=== PATIENT | female | born 1955 | race Caucasian/White ===

== ENCOUNTER 2016-07-11 08:53 | Day surgery (SDC) | payer BC, MEDICAID ==
[2016-07-10 13:28] VITALS: BMI 21.9
[2016-07-11] VITALS (33 sets, daily range): BP systolic 103–179; BP diastolic 55–105; PULSE 60–100; RESP 14–35; Ht 157.5 cm; Wt 55.9 kg
[~2016-07-11] VITALS: Ht 157.5 cm; Wt 55.9 kg
[~2016-07-11 08:53] MED LIST: ENAL20TA PO; HYDR-906 PO; METF500T3 PO
[2016-07-11] MEDS ORDERED: METF-382 PO (09:35)
[2016-07-11 09:53] LABS: BASOPHILS % 0.4 % (0.0-2.0); EOSINOPHILS # 0.2 10^3/ul (0.0-0.5); EOSINOPHILS % 2.3 % (0.0-7.0); HEMATOCRIT 40.8 % (37.0-47.0); HEMOGLOBIN 13.9 g/dl (12.0-16.0); LYMPHOCYTES # 1.6 10^3/ul (0.8-2.9); LYMPHOCYTES % 23.3 % (15.0-51.0); MEAN CORPUSCULAR HEMOGLOBIN 30.5 pg (29.0-33.0); MEAN CORPUSCULAR VOLUME 89.8 fl (82.0-101.0); MEAN PLATELET VOLUME 9.2 fl (7.4-10.4); MONOCYTE # 0.4 10^3/ul (0.3-0.9); MONOCYTES % 5.9 % (0.0-11.0); NEUTROPHIL # 4.7 10^3/ul (1.6-7.5); NEUTROPHILS % 68.1 % (39.0-77.0); PLATELET COUNT 292 10^3/UL (140-440); RED BLOOD COUNT 4.54 10^6/ul (4.20-5.40); RED CELL DISTRIBUTION WIDTH 12.9 % (11.5-14.5); UNCORRECTED WBC 6.9 10^3/ul (4.8-10.8); WHITE BLOOD COUNT 6.9 10^3/ul (4.8-10.8)
[2016-07-11 09:59] LABS: CONDITION 1
[2016-07-11 10:02] LABS: INR 0.92; POTASSIUM 3.9 mmol/L (3.5-5.1); PROTIME 12.4 Sec (12.2-14.2)
[2016-07-11 10:03] LABS: PARTIAL THROMBOPLASTIN TIME 28.4 Sec (25.0-35.0)
--- NOTE | 2016-07-11 10:03 | RADRPT ---
PROCEDURE: XR Chest. CLINICAL INDICATION: Breast cancer, preop TECHNIQUE: AP view of the chest was obtained. COMPARISON: 05/05/2016 FINDINGS: The cardiomediastinal silhouette is within normal limits. The lungs are clear. No pleural effusion or pneumothorax is evident. Visualized osseous structures appear intact. IMPRESSION: No evidence of active cardiopulmonary disease. RPTAT: VV .Yevgeniy Hudson MD, Date Time Electronically viewed and signed by .Yevgeniy Hudson MD, on 07/11/2016 10:03 .O/
[2016-07-11 10:06] LABS: CALCIUM 9.8 mg/dl (8.4-10.2); CREATININE 0.58 mg/dl (0.44-1.00)
--- NOTE | 2016-07-11 12:25 | RADRPT ---
Vent Rate: 87 bpm RR Interval: 0 msec RI Interval: 156 msec QRS Duration: 82 msec QT Interval: 368 msec QTC Interval: 442 msec P-R-T [place]: 82 - 32 - 62 degrees Normal sinus rhythm Normal ECG Electronically Signed By: Maykel Reza [id number]
[2016-07-11] MEDS ORDERED: ROCURONIUM 50 MG INJ ONE (12:40)
[2016-07-11] MEDS ORDERED: MIDAZOLAM 1 MG/ML 2 ML INJ ONE (12:40)
[2016-07-11] MEDS ORDERED: LIDOCAINE 100 MG SYRINGE ONE (12:40)
[2016-07-11] MEDS ORDERED: CEFAZOLIN 1 GM INJ ONE (12:40)
[2016-07-11] MEDS ORDERED: ONDANSETRON 4 MG INJ ONE (12:40)
[2016-07-11] MEDS ORDERED: NEOSTIGMINE 3 MG/3 ML SYRINGE ONE (12:40)
[2016-07-11] MEDS ORDERED: PROPOFOL 20 ML ONE (12:40)
[2016-07-11] MEDS ORDERED: DEXAMETHASONE 4 MG/ML 1 ML INJ ONE (12:40)
[2016-07-11] MEDS ORDERED: GLYCOPYRROLATE 0.4 MG INJ ONE (12:40)
[2016-07-11] MEDS ORDERED: LABETALOL HCL 20MG INJ ONE (12:59)
[2016-07-11] MEDS ORDERED: MEPERIDINE 25 MG INJ IV PRN (13:30)
[2016-07-11] MEDS ORDERED: DIPHENHYDRAMINE 50 MG INJ IV PRN (13:30)
[2016-07-11] MEDS ORDERED: FENTAnyl 50 MCG/ML VIAL IV PRN ×3 (13:30)
[2016-07-11] MEDS ORDERED: EPHEDrine SULFATE 50 MG/5 ML SYG IV PRN (13:30)
[2016-07-11] MEDS ORDERED: TRIMETHOBENZAMIDE 100 MG/ML VIAL IM PRN (13:30)
[2016-07-11] MEDS ORDERED: LABETALOL HCL 20MG INJ IV PRN (13:30)
[2016-07-11] MEDS ORDERED: ONDANSETRON 4 MG INJ IV PRN ×2 (13:30→15:00)
[2016-07-11] MEDS ORDERED: MIDAZOLAM 1 MG/ML 2 ML INJ IV PRN (13:30)
[2016-07-11] MEDS ORDERED: HYDROmorphONE (0.2 MG/ML) 10ML SYG IV PRN ×3 (13:30)
[2016-07-11] MEDS ORDERED: hydrALAzine 20 MG INJ IV PRN (13:30)
--- NOTE | 2016-07-11 14:23 | OPR ---
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 Need for and right modified radical mastectomy. POSTOPERATIVE DIAGNOSIS: Large span of ductal carcinoma in situ, right breast, with positive margin s. Need for and right modified radical mastectomy. OPERATION PERFORMED: Right modified radical mastectomy. ANESTHESIA: General. ANESTHESIOLOGIST: SURGEON: Jemal Flores MD LITHOGRAPHIC PRINTING MACHINIST: Dr. Ross INDICATIONS FOR PROCEDURE: The patient is a 61-year-old female who previously underwent a right par tial mastectomy for a suspicious lesion. She was found to have at least a 5-cm span of ductal carci noma. At that time she did have a sentinel lymph node sampled which did not reveal obvious evidence of disease. She was subsequently presented at the tumor board, and the consensus of the tumor boar d was due to the extensive amount of ductal carcinoma in situ, that she should have a completion mas tectomy, with some additional node sampling since a remaining invasive component could not be ruled out. She consented and was scheduled for surgery. DESCRIPTION OF PROCEDURE: The patient was brought to the operating theater and placed under general anesthesia. The right breast and axillary region were prepped and draped in the usual sterile fash ion. The planned surgical elliptical incision was demarcated with a marking pen around the nipple a reolar complex, including some of the skin overlying the breast. The incision was carried out with a 15 blade scalpel. The subcutaneous tissue was dissected with cautery. The skin edges were then el evated with Allis Bladimir clamps and skin flaps were created with cautery, first superiorly to the cla vicle, then medially to the sternal border, inferiorly to the inframammary fold, and laterally until the latissimus dorsi muscle was identified throughout its course. Mastectomy then took place from medial to lateral using cautery. At the border of the pectoralis major muscle, the pectoralis minor muscle was identified. There were 2 or 3 additionally enlarged lymph nodes noted. These nodes wer e resected using the LigaSure device. The specimen was removed, oriented and sent for permanent pat hologic analysis. The wound was irrigated. Minimal bleeding was controlled with cautery. Two #10 flat Mo-Bai drains were then brought through the right mid axillary line. One was cut to siz e and laid within the axilla, the other was laid over the pectoralis major muscle. Both drains were secured in place with 2-0 nylon suture. The skin was then reapproximated with a deep dermal layer of 4-0 Vicryl sutures in interrupted fashion, followed by final skin approximation with 5-0 PDS in s ubcuticular fashion. Benzoin and Steri-Strips were then applied. The patient tolerated the procedu re well. Estimated blood loss was 30 mL. There were no complications, and the patient was transfer red in stable condition to the recovery room. Dictated By: JEMAL VELASQUEZ/LAMBERTO Conf#: [id number] DID#: [id number]
[2016-07-11] MEDS ORDERED: morphine 2 MG INJ IV PRN (15:00)
[2016-07-11] MEDS ORDERED: ACETAMINOPHEN 1000MG/100ML IV 100 ML IVPB PRN (15:00)
[2016-07-11] MEDS: D5W-0.45 NACL + KCL 20 MEQ 1,000 ML IV SCH ×2 (17:59→23:47)
[2016-07-12 00:02] VITALS: BP 128/66; RESP 18
[2016-07-12 03:28] VITALS: BP_SYST 117; BP_SYST 160; BP_DIAS 57; BP_DIAS 76; RESP 19
[2016-07-12 04:00] VITALS: BP 129/63; RESP 19
[2016-07-12 07:14] VITALS: BP 99/57; RESP 19
[2016-07-12] MEDS: D5W-0.45 NACL + KCL 20 MEQ 1,000 ML IV SCH ×2 (08:04→13:19)
[2016-07-12] MEDS ORDERED: ENALAPRIL 20 MG TAB PO SCH (09:30)
[2016-07-12 11:20] VITALS: BP 128/70; PULSE 82; RESP 18
--- NOTE | 2016-07-12 12:13 | HP ---
Date/Time of Note Date/Time of Note DATE: 07/12/16 TIME: 12:11 Assessment/Plan VTE Prophylaxis VTE Prophylaxis Intervention: LMWH Lines/Catheters IV C[facility]ter Type (from [facility]): Peripheral IV Urinary Cath still in place: No Assessment/Plan Chief Complaint/Hosp Course 1) breast cancer - s/p mastectomy 2) hypertension - monitor Problems: HPI/ROS Admit Date/Time Admit Date/Time Hx of Present Illness Patient with hypertension and diet controlled diabetes comes in with breast cancer here for mastectomy. Patient underwent procedure and is now getting postoperative care PMH/Family/Social Past Medical History Medical History: diabetes, hypertension Social History Smoking Status: Never smoker Exam/Review of Systems Vital Signs Vitals Vital Signs Date Time Temp Pulse Resp B/P Pulse Ox O2 Delivery O2 Flow Rate FiO2 07/12/16 07:14 98.4 71 19 99/57 99 07/12/16 04:00 Room Air 07/12/16 00:02 2.0 Intake and Output 07/11/16 07/11/16 07/12/16 15:00 23:00 07:00 Intake Total 1300 ml 100 ml 2350 ml Output Total 52 ml 330 ml 220 ml Balance 1248 ml -230 ml 2130 ml Exam Constitutional: well developed Head: atraumatic, normocephalic Neck: supple Cardiovascular: regular rate and rhythm Gastrointestinal: non-tender, soft Labs Result Diagram: 07/11/16 0940 07/11/16 0940 Medications Medications Current Medications Ondansetron HCl 4 mg 4 mg Q6H PRN IV NAUSEA AND/OR VOMITING Last administered on 07/11/16 20:36; Admin Dose 4 MG; Start 07/11/16 at 15:00 Potassium Chloride/Dextrose/ Sod Cl (D5-1/2ns + KCl 20 Meq) 1,000 ml @ 125 mls/ hr Q8H IV Last administered on 07/12/16 08:04; Admin Dose 125 MLS/HR; Start 07/11/16 at 15:00 Morphine Sulfate 2 mg 2 mg Q1H PRN IV PAIN; Start 07/11/16 at 15:00 Acetaminophen (Ofirmev 1000mg/ 100ml Iv) 100 ml @ 400 mls/hr Q6H PRN IVPB PAIN Last administered on 07/11/16 20:36; Admin Dose 400 MLS/HR; Start 07/11/16 at 15:00 Enalapril Maleate (Vasotec) 20 mg DAILY PO Last administered on 07/12/16t 11:02 ; Admin Dose 20 MG; Start 07/12/16 at 09:30 ZABRINA SALINAS Jul 12, 2016 12:12
[2016-07-12] MEDS ORDERED: ACET1TAB40 PO (14:22)
== END 2016-07-12 16:15 | disposition home or self-care (01) ==
LOC: SDS 08:53 → MS1 17:30 → SDS 07-12 16:15
PROVIDERS: ATTEND Surgery Surgical Oncology
DX: Z85.3 Personal history of malignant neoplasm of breast (principal); I10 Essential (primary) hypertension; E11.9 Type 2 diabetes mellitus without complications
CPT/HCPCS: 19307; 71010; 80048; 82962; 85025; 85610; 85730; 88307; 93005; J0131; J0690; J1100; J2001; J2250; J2405; J2710; J3010; J3250; J3480; Z7512; Z7610